=== PATIENT | female | born 1980 | race Caucasian/White ===

== ENCOUNTER 2017-12-27 01:32 | Emergency (ER) | payer MEDICAID ==
[~2017-12-27] VITALS: Ht 157.5 cm; Wt 64.9 kg
[~2017-12-27 01:32] MED LIST: PREN-385 PO
[2017-12-27 01:46] VITALS: BP 116/80
--- NOTE | 2017-12-27 01:48 | NUR ---
TO BED # 7 AMBULATORY, REPORT GIVEN TO LIEN GASTELUM.
--- NOTE | 2017-12-27 01:50 | NUR ---
PATIENT PRESENTS TO ED WITH EPIGASTRIC PAIN SINCE 8PM . PT DENIES N/V/D; SKIN IS PINK/WARM/DRY; AAOX4 WITH EVEN AND STEADY GAIT; LUNGS CLEAR BL; HR EVEN AND REGULAR; PT DENIES ANY FEVER, CP, SOB, OR COUGH AT THIS TIME; PATIENT STATES PAIN OF 10/10 AT THIS TIME; VSS; PATIENT POSITIONED FOR COMFORT; HOB ELEVATED; BEDRAILS UP X1; BED DOWN. ER MD MADE AWARE OF PT STATUS.
[2017-12-27] MEDS ORDERED: LIDOCAINE VISCOUS 2% 20 ML UDC PO ONE (02:15)
[2017-12-27] MEDS ORDERED: ALUMINUM HYD/MAG/SIMETHICONE 30 ML UDC PO ONE (02:15)
[2017-12-27] MEDS ORDERED: DICYCLOMINE HCL LIQUID 10 MG/5 ML UDC PO ONE (02:15)
[2017-12-27] MEDS ORDERED: PANTOPRAZOLE 40 MG TABEC PO ONE (02:50)
[2017-12-27] MEDS ORDERED: KETOROLAC 60 MG/2 ML VIAL IM ONE (03:05)
--- NOTE | 2017-12-27 03:36 | NUR ---
Dr. Rodríguez evaluating patient at bedside.
--- NOTE | 2017-12-27 03:44 | NUR ---
Patient discharged with v/s stable. Written and verbal after care instructions given and explained. Patient alert, oriented and verbalized understanding of instructions. Ambulatory with steady gait. All questions addressed prior to discharge. ID band removed. Patient advised to follow up with PMD. Rx of MAALOX, CARAFATE, PROTONIX, TRAMADOL given. Patient educated on indication of medication including possible reaction and side effects. Opportunity to ask questions provided and answered.
[2017-12-27 03:45] VITALS: BP 116/80
== END 2017-12-27 03:44 | disposition home or self-care (01) ==
LOC: MED 01:32
DX: K29.00 Acute gastritis without bleeding (principal); Z79.899 Other long term (current) drug therapy
CPT/HCPCS: 81002; 81025; 96372; 99284; J1885

== ENCOUNTER 2019-04-20 22:57 | Inpatient (IN) | payer MEDICAID, OTHER ==
[~2019-04-20] VITALS: Ht 157.5 cm; Wt 60.3 kg
[2019-04-20 23:05] VITALS: BP 141/80
--- NOTE | 2019-04-20 23:08 | NUR ---
TO LOBBY A/W BED AMBULATORY
--- NOTE | 2019-04-20 23:37 | NUR ---
PT AMBULATED TO BED 12.
[2019-04-21] MEDS ORDERED: MORPHINE SULFATE 4 MG/ML SYR IVP ONE ×2 (00:25→01:35)
[2019-04-21] MEDS ORDERED: ONDANSETRON 4 MG/2 ML VIAL IVP ONE (00:25)
--- NOTE | 2019-04-21 00:25 | NUR ---
ERMD AT BEDSIDE EVALUATING PATIENT.
--- NOTE | 2019-04-21 00:30 | NUR ---
38 Y/O FEMALE C/O OF ABD PAIN RADIATING TO HER BACK STARTED AN HOUR AGO AFTER EATING [employer] FOR DINNER. SHE STATES SHE HAS NAUSEA. PAIN IS AN 8/10. FACIAL GRIMACING NOTED. ABDOMINAL SOUNDS ON ALL FOUR QUADRANTS. ABDOMEN IS SOFT AND ROUND. ERMD MADE AWARE OF STATUS. SIDERAILSX1 AND PLACED ON MONITOR.
[2019-04-21 00:40] LABS: APPEARANCE,URINE SL CLOUDY (CLEAR); BILIRUBIN,URINE NEGATIVE (NEGATIVE); BLOOD, URINE NEGATIVE (NEGATIVE); COLOR,URINE YELLOW (YELLOW); LEUKOCYTE ESTERASE ,URINE NEGATIVE (NEGATIVE); NITRITE, URINE NEGATIVE (NEGATIVE); PH,URINE 7.5 (5.0-9.0); UGLUCOSE NEGATIVE (NEGATIVE)
[2019-04-21 00:42] LABS: BASOPHILS % (AUTO) 0.4 % (0.0-2.0); EOSINOPHILS # (AUTO) 0.1 K/uL (0-0.4); EOSINOPHILS % (AUTO) 0.8 % (0.0-4.0); HEMATOCRIT 38.9 % (36-48); LYMPHOCYTES # (AUTO) 1.7 K/uL (2.5-16.5); LYMPHOCYTES % (AUTO) 22.6 % (20.5-51.1); MEAN CORPUSCULAR HEMOGLOBIN 29 pg (27-31); MEAN CORPUSCULAR HGB CONC 33 g/dL (33-37); MEAN CORPUSCULAR VOLUME 86.5 fL (80-94); MONOCYTES # (AUTO) 0.6 K/uL (0.8-1.0); MONOCYTES % (AUTO) 8.5 % (1.7-9.3); NEUTROPHILS # (AUTO) 5.1 K/uL (1.8-7.7); NEUTROPHILS % (AUTO) 67.7 % (42.2-75.2); PLATELET COUNT (AUTO) 223 K/uL (140-450); WHITE BLOOD COUNT (AUTO) 7.5 K/uL (4.8-10.8)
[2019-04-21 00:50] LABS: ANION GAP 15.7 (8-16); CARBON DIOXIDE 24.9 mmol/L (21-32); CREATININE 0.7 mg/dL (0.6-1.3); POTASSIUM 3.6 mmol/L (3.5-5.1)
[2019-04-21 00:55] LABS: ALBUMIN 3.9 g/dL (3.4-5.0); TOTAL BILIRUBIN 0.4 mg/dL (0.0-1.0)
[2019-04-21] MEDS ORDERED: KETOROLAC 30 MG/ML VIAL IVP ONE (01:10)
[2019-04-21] MEDS ORDERED: RANI150C PO (02:54)
[2019-04-21] MEDS ORDERED: LORazepam 2 MG/ML VIAL IM/IVP PRN (03:05)
[2019-04-21] MEDS ORDERED: DOCUSATE SODIUM 100 MG GELCAP PO PRN (03:05)
[2019-04-21] MEDS ORDERED: ZOLPIDEM 5 MG TAB PO PRN (03:05)
[2019-04-21] MEDS ORDERED: ACETAMINOPHEN 325 MG TAB PO PRN (03:05)
[2019-04-21] MEDS ORDERED: HYDROcodone/APAP 5/325 MG 1 TAB TAB PO PRN (03:05)
[2019-04-21] MEDS ORDERED: ONDANSETRON 4 MG/2 ML VIAL IM/IVP PRN (03:05)
--- NOTE | 2019-04-21 03:20 | NUR ---
Patient will be admitted to care of SR. JEFFREY . Admited to Med/Surg. Will go to room 125 A. Belongings list completed. Report to ORIANA [place].
--- NOTE | 2019-04-21 03:20 | NUR ---
ADMITTED PT FROM ER. AAOX4. DENIES PAIN AT THIS TIME. NO SOB NOTED. NO NAUSEA/VOMITING. ON ROOM AIR. SKIN INTACT. IV TO RIGHT AC #20G, PATENT AND INTACT. ORIENTED PT TO ROOM. DISCUSSED PLAN OF CARE, PT VERBALIZED UNDERSTANDING. PT'S AT BEDSIDE. SAFETY PRECAUTION IN PLACE. CALL LIGHT WITHIN REACH.
[2019-04-21 03:29] LABS: PROTHROMBIN TIME 10.2 secs (10.8-13.4)
[2019-04-21] MEDS: NACL 0.9% 1,000 ML IV SCH ×2 (03:44→16:37)
[2019-04-21] MEDS ORDERED: MORPHINE SULFATE 2 MG/ML SYR IVP PRN (03:45)
[2019-04-21 03:57] LABS: BARBITURATE, URINE NEG. ng/ml (NEG <=200); BENZODIAZEPINE, URINE NEG. ng/mL (NEG <=200); CANNABINOID, URINE NEG. ng/mL (NEG <=50); COCAINE, URINE NEG. ng/mL (NEG <=300); OPIATE, URINE NEG. ng/mL (NEG <=2000); PHENCYCLIDINE SCREEN,URINE NEG. ng/mL (NEG <=25)
[2019-04-21 03:59] LABS: CHOL/HDL RATIO 3.6 (1-4.5)
[2019-04-21 04:00] VITALS: BP 95/55
[2019-04-21 04:42] LABS: MAGNESIUM 1.8 mg/dL (1.8-2.4); PHOSPHORUS 1.6 mg/dL (2.5-4.9); THYROID STIMULATING HORMONE 1.15 uIU/mL (0.34-3.74)
--- NOTE | 2019-04-21 06:00 | NUR ---
PT RESTING IN BED, AWAKE. NO C/O PAIN. NO C/O NAUSEA. RESP EVEN AND UNLABORED. ALL NEEDS ATTENDED AT THIS TIME. AT BEDSIDE. CALL LIGHT WITHIN REACH.
--- NOTE | 2019-04-21 07:22 | NUR ---
ENDORSED PT TO DAY SHIFT NURSE. PT IN STABLE CONDITION.
--- NOTE | 2019-04-21 07:25 | NUR ---
RECEIVED REPORT FROM NIGHT RN. PT RESTING IN BED. AAOX4. NO S/S OF ACUTE DISTRESS. PT DENIES PAIN. IV SITE PATENT AND INTACT. CALL LIGHT WITHIN REACH. SAFETY MEASURES ENSURED. WILL CONTINUE TO MONITOR.
[2019-04-21 08:00] VITALS: BP 109/76
--- NOTE | 2019-04-21 08:25 | NUR ---
PATIENT HAS BEEN SCREENED AND CATEGORIZED LOW NUTRITION RISK. PATIENT WILL BE SEEN WITHIN 7 DAYS OF ADMISSION. 04/26/[address]
[2019-04-21] MEDS: FAMOTIDINE 20 MG TAB PO SCH (08:46)
[2019-04-21] MEDS: SODIUM PHOS / POTASSIUM PHOS 1 PKT PDR PO SCH ×2 (08:46→20:26)
--- NOTE | 2019-04-21 12:16 | NUR ---
PATIENT RESTING IN BED. NO S/S OF ACUTE DISTRESS. PT DENIES PAIN. CALL LIGHT WITHIN REACH. SAFETY MEASURES ENSURED. WILL CONTINUE TO MONITOR.
[2019-04-21 16:00] VITALS: BP 97/75
--- NOTE | 2019-04-21 16:13 | NUR ---
PATIENT RESTING IN BED. NO S/S OF ACUTE DISTRESS. PT DENIES PAIN. CALL LIGHT WITHIN REACH. SAFETY MEASURES ENSURED. WILL CONTINUE TO MONITOR.
--- NOTE | 2019-04-21 19:30 | NUR ---
ASSUMED CARE OF PATIENT, AWAKE, ALERT AND ORIENTED. FAMILY AT BEDSIDE. NO COMPLAINS. NPO STILL EXCEPT MEDS. CALL LIGHT WITHIN REACH.
--- NOTE | 2019-04-21 20:00 | NUR ---
VITAL SIGNS STABLE. NO COMPLAINS. CARE BOARD UPDATED. CALL LIGHT WITHIN REACH.
--- NOTE | 2019-04-21 21:00 | NUR ---
HIDA SCAN PENDING RESULTS. NPO STILL. CALL LIGHT WITHIN REACH.
[2019-04-21 23:42] VITALS: BP 94/56
--- NOTE | 2019-04-21 23:43 | NUR ---
ASLEEP. NO COMPLAINS. VITAL SIGNS STABLE. CALL LIGHT WITHIN REACH.
--- NOTE | 2019-04-22 05:20 | NUR ---
ASLEEP. NO COMPLAINS. CALL LIGHT WITHIN REACH. NPO FOR POSSIBLE SURGERY TODAY.
[2019-04-22 06:06] LABS: ANION GAP 10.4 (8-16); CARBON DIOXIDE 26.4 mmol/L (21-32); CREATININE 0.6 mg/dL (0.6-1.3); POTASSIUM 3.8 mmol/L (3.5-5.1)
[2019-04-22 06:39] LABS: BASOPHILS % (AUTO) 0.4 % (0.0-2.0); EOSINOPHILS # (AUTO) 0.1 K/uL (0-0.4); HEMATOCRIT 36.2 % (36-48); HEMOGLOBIN 11.9 g/dL (12.0-16.0); LYMPHOCYTES # (AUTO) 2.1 K/uL (2.5-16.5); MEAN CORPUSCULAR HEMOGLOBIN 29 pg (27-31); MEAN CORPUSCULAR HGB CONC 33 g/dL (33-37); MEAN CORPUSCULAR VOLUME 88.1 fL (80-94); MONOCYTES # (AUTO) 0.5 K/uL (0.8-1.0); MONOCYTES % (AUTO) 9.5 % (1.7-9.3); NEUTROPHILS # (AUTO) 2.2 K/uL (1.8-7.7); NEUTROPHILS % (AUTO) 44.1 % (42.2-75.2); PLATELET COUNT (AUTO) 200 K/uL (140-450); RED CELL DISTRIBUTION WIDTH 13.8 % (11.6-13.7); WHITE BLOOD COUNT (AUTO) 4.9 K/uL (4.8-10.8)
--- NOTE | 2019-04-22 07:15 | NUR ---
ENDORSED CARE AT BEDSIDE WITH KORINA RN , PATIENT IN STABLE CONDITION.
--- NOTE | 2019-04-22 07:16 | NUR ---
RECEIVED BEDSIDE REPORT FROM ROUGH PLANER TENDER NURSE. PATIENT IS AWAKE, ALERT AND ORIENTEDX4. NO SIGNS OF DISTRESS ON RA. SKIN IS INTACT. IV ON R AC 20G INFUSING NS AT 70. CLEAN, DRY AND INTACT. AMBULATORY. CONTINENT. BED IN LOW POSITION.CALL LIGHT WITHIN REACH. ABLE TO MAKE NEEDS KNOWN
[2019-04-22 08:00] VITALS: BP 93/51
[2019-04-22] MEDS: FAMOTIDINE 20 MG TAB PO SCH (08:41)
[2019-04-22] MEDS: NACL 0.9% 1,000 ML IV SCH ×2 (08:42→21:58)
--- NOTE | 2019-04-22 08:43 | NUR ---
ADMINISTERED MEDS. EDUCATED ON SIDE EFFECTS. PATIENT TOLERATED WELL. WILL CONTINUE TO MONITOR
--- NOTE | 2019-04-22 10:00 | NUR ---
PATIENT IN NO DISTRESS. AT BEDSIDE
[2019-04-22] MEDS ORDERED: BUPIVACAINE-MPF 0.25% 30 ML VIAL INJ ONE (10:24)
--- NOTE | 2019-04-22 12:15 | NUR ---
OR TEAM CAME AND PICKED UP THE PATIENT. PATIENT LEFT IN STABLE CONDITION
[2019-04-22] MEDS ORDERED: ceFAZolin 1,000 MG VIAL ONE (12:29)
[2019-04-22] MEDS ORDERED: DEXAMETHASONE 4 MG/ML VIAL ONE (12:30)
[2019-04-22] MEDS ORDERED: ONDANSETRON 4 MG/2 ML VIAL ONE (12:30)
[2019-04-22] MEDS ORDERED: SEVOFLURANE 250 ML BTL INH ONE (12:30)
[2019-04-22] MEDS ORDERED: KETOROLAC 60 MG/2 ML VIAL IM ONE (12:30)
[2019-04-22] MEDS ORDERED: SUCCINYLCHOLINE CHLORIDE 200 MG/10 ML VIAL IVP ONE (12:30)
[2019-04-22] MEDS ORDERED: PROPOFOL 200 MG/20 ML VIAL IV ONE (12:30)
[2019-04-22] MEDS ORDERED: ROCURONIUM 50 MG/5 ML VIAL IV ONE (12:30)
[2019-04-22] MEDS ORDERED: fentaNYL 0.05 MG/ML VIAL ONE (12:45)
[2019-04-22] MEDS ORDERED: MEPERIDINE 50 MG/ML SYR ONE (12:45)
[2019-04-22] MEDS ORDERED: MIDAZOLAM 2 MG/2 ML VIAL ONE (12:45)
--- NOTE | 2019-04-22 13:10 | NUR ---
PATIENT BACK FROM OR IN STABLE CONDITION
[2019-04-22] MEDS ORDERED: LACTATED RINGERS 1,000 ML IV SCH (13:14)
[2019-04-22] MEDS ORDERED: HYDROmorphone 1 MG/ML AMP IVP PRN (13:15)
[2019-04-22] MEDS ORDERED: ONDANSETRON 4 MG/2 ML VIAL IVP PRN (13:15)
[2019-04-22] MEDS ORDERED: diphenhydrAMINE 50 MG/ML VIAL IVP PRN (13:15)
[2019-04-22] MEDS ORDERED: MEPERIDINE 25 MG/ML SYR IVP PRN (13:15)
[2019-04-22] MEDS: KETOROLAC 30 MG/ML VIAL IVP PRN (15:24)
--- NOTE | 2019-04-22 15:27 | NUR ---
ADMINISTERED PRN PAIN MED. PATIENT TOLERATED WELL. EDUCATED ON SIDE EFFECTS. WILL CONTINUE TO MONITOR
--- NOTE | 2019-04-22 15:59 | NUR ---
DR RIVERS SAID IF PATIENT STILL IN TOO MUCH PAIN SHE CAN GO HOME TOMORROW. HE SAID IF SHE STAYS OVER NIGHT CHANGE DIET TOMORROW TO FULL LIQ. PATIENT HAS NOT PASSED GAS OR AMBULATED
[2019-04-22 16:00] VITALS: BP 107/69
--- NOTE | 2019-04-22 17:49 | NUR ---
PATIENT IN NO DISTRESS. WILL CONTINUE TO MONITOR
--- NOTE | 2019-04-22 19:20 | NUR ---
REPORT RECEIVED FORM DORA RN DAYSHIFT NURSE AT BEDSIDE FOR CONTINUITY OF CARE, PT IN STABLE CONDITION.
--- NOTE | 2019-04-22 19:20 | NUR ---
GAVE BEDSIDE REPORT TO TOOL SETTER NURSE. PATIENT ENDORSED IN STABLE CONDITION
--- NOTE | 2019-04-22 20:00 | NUR ---
PT IN LOW BED WITH SIDE RAILS UP X2, V/S FOLLOWS T 97.5 P 80 R 18 B/P 97/51 02 96% ON ROOM AIR. PT IS AOX4 WITH IV SITE ON RAC 20 GUAGE INTACT AND RUNNING NS AT 70MLS/HR. PT HAS 4 SURGICAL SITES WHICH ARE DRESSED 1 SITE ON LOWER ABDOMEN HAS MINIMAL BLOODY DRAINAGE THAT WAS CIRCLES. PT WAS STANDBY ASSIST TO TOILET. AFTERWARDS, PT AMBULATED IN [place] FOR A SHORT WHILE.
--- NOTE | 2019-04-22 21:00 | NUR ---
PT IN BED C/O SEVERE PAIN IN ABDOMEN, RECEIVED IVP/PRN MORPHINE ORDERED FOR SEVERE PAIN 03/01. PT ALSO REQUESTED AND WAS GIVEN PO/PRN AMBIEN TO HELP HER SLEEP. IV SITE INTACT AND RUNNING N/S AT 70MLS/HR. BED LOW AND CALL MORALES IN REACH.
[2019-04-23] VITALS: BP 100/53
--- NOTE | 2019-04-23 | NUR ---
PT IN BED AWAKE, SHE DENIES PAIN AT THIS TIME. V/S FOLLOWS T 97.3 P 64 R 18 B/P 100/53 02 98% ON ROOM AIR . BED LOW, SIDE RAILS UP X2 AND ALL REQUESTED NEEDS ATTENDED. AND CALL MORALES IN REACH.
[2019-04-23] MEDS: KETOROLAC 30 MG/ML VIAL IVP PRN ×2 (05:22→12:01)
--- NOTE | 2019-04-23 05:30 | NUR ---
PT IN BED C/O OF 03/01 PAIN IN ABDOMEN, PT GIVEN REQUESTED TORADOL IVP. WILL MONITOR FOR EFFECT. NORMAL SALINE RUNNING AT 70MLS/HR. CALL MORALES IN REACH.
[2019-04-23 06:43] LABS: ANION GAP 13.8 (8-16); CREATININE 0.5 mg/dL (0.6-1.3); POTASSIUM 3.8 mmol/L (3.5-5.1)
[2019-04-23 06:55] LABS: MAGNESIUM 1.9 mg/dL (1.8-2.4); PHOSPHORUS 2.7 mg/dL (2.5-4.9)
[2019-04-23 07:14] LABS: BASOPHILS % (AUTO) 0.2 % (0.0-2.0); EOSINOPHILS % (AUTO) 0.4 % (0.0-4.0); HEMOGLOBIN 11.9 g/dL (12.0-16.0); LYMPHOCYTES # (AUTO) 1.6 K/uL (2.5-16.5); LYMPHOCYTES % (AUTO) 21.9 % (20.5-51.1); MEAN CORPUSCULAR HEMOGLOBIN 30 pg (27-31); MEAN CORPUSCULAR HGB CONC 34 g/dL (33-37); MONOCYTES # (AUTO) 0.6 K/uL (0.8-1.0); MONOCYTES % (AUTO) 8.6 % (1.7-9.3); NEUTROPHILS % (AUTO) 68.9 % (42.2-75.2); PLATELET COUNT (AUTO) 219 K/uL (140-450); RED BLOOD CELL COUNT(AUTO) 4.03 MIL/uL (4.20-5.40); RED CELL DISTRIBUTION WIDTH 13.7 % (11.6-13.7); WHITE BLOOD COUNT (AUTO) 7.3 K/uL (4.8-10.8)
[2019-04-23 08:00] VITALS: BP 101/54
[2019-04-23] MEDS: FAMOTIDINE 20 MG TAB PO SCH (09:49)
[2019-04-23] MEDS ORDERED: ACET-9525 PO (11:23)
--- NOTE | 2019-04-23 15:16 | NUR ---
ASKED THE ATTENDING MD IF THE PT WAS READY FOR DC. HE SAID YES AND WROTE AND ORDER. i INSTRUCTED THE PT TO CALL 911 FOR SERIOUS SYMPTOMS OR CALL HER DR OR COME TO OUR HOSPITAL WITH MINOR SYMPTOMS. I INSTRUCTED HER NOT TO GET THE DRESSINGS WET AND THEREFORE NO SHOWERS AT THIS TIME. VS STABLE THE PT IS WITHOUT C/O. PRESCRIPTION GIVEN. I WHEEL CHAIRED THE PT OUT TO HER SISTERS [facility]AN AND SAFELY ASSISTED HER INTO THE PASSENGERS SEAT. SEE STATED SHE WILL CALL HER DR AND FOLLOW UP WITH AND APPOINTMENT BECAUSE SHE WANTS TO GO BACK TO WORK.
== END 2019-04-23 14:44 | disposition home or self-care (01) | DRG 263 ==
LOC: MED 22:57 → MMU 04-21 02:39
PROVIDERS: ADMIT General Practice; ATTEND General Practice
PROC: 0FT44ZZ Resection of Gallbladder, Percutaneous Endoscopic Approach (ICD-10-PCS; principal; 2019-04-22 11:10)
DX: K80.12 Calculus of gallbladder with acute and chronic cholecystitis without obstruction (principal); K65.9 Peritonitis, unspecified; K21.9 Gastro-esophageal reflux disease without esophagitis; E83.39 Other disorders of phosphorus metabolism; F43.9 Reaction to severe stress, unspecified; D64.9 Anemia, unspecified; Z82.49 Family history of ischemic heart disease and other diseases of the circulatory system
CPT/HCPCS: 36415; 71045; 76705; 78445; 80048; 80053; 80305; 81003; 81025; 82150; 82374; 83036; 83690; 83735; 84100; 84134; 84443; 85025; 85610; 85730; 87081; 88304; 93005; 96374; 96375; 99285; J0330; J0690; J1100; J1885; J2175; J2250; J2270; J2405; J2704; J3010; J3490; J7030; Q0092

== ENCOUNTER 2020-01-05 01:40 | Emergency (ER) | payer OTHER ==
[~2020-01-05] VITALS: Ht 157.5 cm; Wt 60.8 kg
[~2020-01-05 01:40] MED LIST changes: -PREN-385 PO; +RANI150C PO
[2020-01-05 01:48] VITALS: BP 106/81
--- NOTE | 2020-01-05 01:58 | NUR ---
PT AMBULATED TO BED 12 WITH STEADY GAIT.
--- NOTE | 2020-01-05 02:02 | NUR ---
39F PT PRESENTS TO ED WITH C/O RUQ, LUQ 9/10 ABDOMINAL PAIN THAT IS RADIATING TO LOWER BACK. PT REPORTS HAVING IT FOR X 5 DAYS. BOWEL SOUNDS NORMOACTIVE. ABDOMEN SOFT AND NONTENDER TO THE TOUCH. DENIES HEMATOCHEZIA. DENIES DYSURIA. DENIES SOB/COUGH. DENIES N/V/D. PMHX: GASTRITIS. RX: DENIES NKA NEGATIVE FOR COVID SCREENING PT WEARING MASK.
[2020-01-05 02:05] VITALS: BP 106/81
--- NOTE | 2020-01-05 02:05 | NUR ---
BARBARA COOL AT BEDSIDE EVALUATING PT.
[2020-01-05] MEDS ORDERED: DICYCLOMINE HCL LIQUID 20 MG, ALUMINUM HYD/MAG/SIMETHICONE 30 ML, LIDOCAINE VISCOUS 2% ... PO ONE ×3 (02:10)
[2020-01-05] MEDS ORDERED: LIDOCAINE VISCOUS 2% 20 ML UDC ONE (02:12)
[2020-01-05] MEDS ORDERED: ALUMINUM HYD/MAG/SIMETHICONE 30 ML UDC ONE (02:12)
[2020-01-05] MEDS ORDERED: DICYCLOMINE HCL LIQUID 10 MG/5 ML UDC ONE (02:12)
--- NOTE | 2020-01-05 02:20 | NUR ---
Patient discharged with v/s stable. Written and verbal after care instructions given and explained. Patient alert, oriented and verbalized understanding of instructions. Ambulatory with steady gait. All questions addressed prior to discharge. ID band removed. Patient advised to follow up with PMD. Rx of PRILOSEC AND MOTRIN given. Patient educated on indication of medication including possible reaction and side effects. Opportunity to ask questions provided and answered.
== END 2020-01-05 02:20 | disposition home or self-care (01) ==
LOC: MED 01:40
DX: K21.9 Gastro-esophageal reflux disease without esophagitis (principal); R10.13 Epigastric pain; F17.210 Nicotine dependence, cigarettes, uncomplicated; Z79.899 Other long term (current) drug therapy; Z90.49 Acquired absence of other specified parts of digestive tract
CPT/HCPCS: 81002; 81025; 99283

== ENCOUNTER 2020-01-05 09:11 | Emergency (ER) | payer OTHER ==
[~2020-01-05] VITALS: Ht 160 cm; Wt 61.2 kg
[2020-01-05 09:15] VITALS: BP 112/68
--- NOTE | 2020-01-05 09:23 | NUR ---
Patient ambulated to bed 12. RN evaluating patient at bedside.
[2020-01-05] MEDS ORDERED: KETOROLAC 30 MG/ML VIAL IVP ONE (09:25)
--- NOTE | 2020-01-05 09:25 | NUR ---
C/O EPIGASTRIC PAIN 05/01 RADIATING TO BACK X SUNDAY. EPIGASTRIC REGION TENDER TO TOUCH. BOWEL SOUNDS ACTIVE. ABDOMEN SOFT AND ROUND. LAST BM YESTERDAY, NORMAL. PT DENIES CONSTIPATION, DIARRHEA, OR N/V. WAS SEEN HERE FOR LAST NIGHT FOR SAME SYMPTOMS, DIAGNOSED WITH GERD, SENT HOME WITH PRESCRIPTION. STATES SHE TOOK PRESCRIPTION WITH NO RELIEF. PMH- CHOLECYSTECTOMY 2019
--- NOTE | 2020-01-05 09:30 | NUR ---
URINE COLLECTED, PREG NEGATIVE
--- NOTE | 2020-01-05 09:31 | NUR ---
LAB AT BEDSIDE
--- NOTE | 2020-01-05 09:34 | NUR ---
Patient taken to CT scan via wheelchair by tech.
[2020-01-05 09:41] LABS: APPEARANCE,URINE CLEAR (CLEAR); BILIRUBIN,URINE NEGATIVE (NEGATIVE); BLOOD, URINE 3+ (NEGATIVE); COLOR,URINE YELLOW (YELLOW); LEUKOCYTE ESTERASE ,URINE NEGATIVE (NEGATIVE); NITRITE, URINE NEGATIVE (NEGATIVE); UGLUCOSE NEGATIVE (NEGATIVE)
[2020-01-05 09:41] LABS: BASOPHILS % (AUTO) 0.5 % (0.0-2.0); EOSINOPHILS # (AUTO) 0.1 K/uL (0-0.4); EOSINOPHILS % (AUTO) 1.4 % (0.0-4.0); HEMATOCRIT 38.8 % (36-48); HEMOGLOBIN 12.8 g/dL (12.0-16.0); LYMPHOCYTES # (AUTO) 1.7 K/uL (2.5-16.5); MEAN CORPUSCULAR HEMOGLOBIN 28 pg (27-31); MEAN CORPUSCULAR HGB CONC 33 g/dL (33-37); MEAN CORPUSCULAR VOLUME 85.5 fL (80-94); MONOCYTES # (AUTO) 0.6 K/uL (0.8-1.0); MONOCYTES % (AUTO) 7.7 % (1.7-9.3); NEUTROPHILS # (AUTO) 5.3 K/uL (1.8-7.7); NEUTROPHILS % (AUTO) 68.4 % (42.2-75.2); PLATELET COUNT (AUTO) 231 K/uL (140-450); RED BLOOD CELL COUNT(AUTO) 4.54 MIL/uL (4.20-5.40); RED CELL DISTRIBUTION WIDTH 13.7 % (11.6-13.7); WHITE BLOOD COUNT (AUTO) 7.8 K/uL (4.8-10.8)
--- NOTE | 2020-01-05 09:44 | NUR ---
PT RETURNED FROM CT
[2020-01-05 09:52] LABS: RBC,URINE 11-20 (MOD) /HPF (0-5)
[2020-01-05 09:53] LABS: WBC,URINE 0-5 /HPF (0-5)
--- NOTE | 2020-01-05 09:53 | NUR ---
Dr. Mejia is evaluating the patient at bedside.
[2020-01-05 09:57] LABS: ALBUMIN 3.6 g/dL (3.4-5.0); ANION GAP 11.7 (8-16); CARBON DIOXIDE 26.9 mmol/L (21-32); CREATININE 0.6 mg/dL (0.6-1.3); POTASSIUM 3.6 mmol/L (3.5-5.1); TOTAL BILIRUBIN 0.4 mg/dL (0.0-1.0)
--- NOTE | 2020-01-05 10:17 | NUR ---
PAIN 10, NADR
[2020-01-05 10:30] VITALS: BP 107/63
--- NOTE | 2020-01-05 10:30 | NUR ---
Patient discharged with v/s stable. Written and verbal after care instructions given and explained. Patient alert, oriented and verbalized understanding of instructions. Ambulatory with steady gait. All questions addressed prior to discharge. ID band removed. Patient advised to follow up with PMD. Rx of MIRALAX given. Patient educated on indication of medication including possible reaction and side effects. Opportunity to ask questions provided and answered. PT INSTRUCTED THAT SHE CAN CONTINUE TAKING PREVIOUS PRESCRIPTION FROM LAST NIGHT FOR GERD
== END 2020-01-05 10:30 | disposition home or self-care (01) ==
LOC: MED 09:11
DX: K21.9 Gastro-esophageal reflux disease without esophagitis (principal); K59.00 Constipation, unspecified; Z79.899 Other long term (current) drug therapy
CPT/HCPCS: 36415; 74176; 80053; 81001; 81025; 83690; 85025; 96374; 99284; J1885

== ENCOUNTER 2020-08-02 04:15 | Emergency (ER) | payer OTHER ==
[~2020-08-02] VITALS: Ht 157.5 cm; Wt 59.0 kg
[2020-08-02 04:20] VITALS: BP 138/70
--- NOTE | 2020-08-02 04:33 | NUR ---
PT TAKEN TO TENT
[2020-08-02] MEDS ORDERED: ASPIRIN 325 MG TAB PO ONE (04:55)
[2020-08-02] MEDS ORDERED: PANTOPRAZOLE 40 MG TABEC PO ONE (04:55)
--- NOTE | 2020-08-02 05:00 | NUR ---
medicated as per ERMDS order, tolerated well
--- NOTE | 2020-08-02 05:03 | NUR ---
Blood for labwork drawn from [facility]. Patient tolerated well.
--- NOTE | 2020-08-02 05:05 | NUR ---
swab done sent to lab.
[2020-08-02 05:58] LABS: BASOPHILS % (AUTO) 0.4 % (0.0-2.0); EOSINOPHILS # (AUTO) 0.1 K/uL (0-0.4); EOSINOPHILS % (AUTO) 0.8 % (0.0-4.0); HEMATOCRIT 38.6 % (36-48); HEMOGLOBIN 12.8 g/dL (12.0-16.0); LYMPHOCYTES # (AUTO) 1.8 K/uL (2.5-16.5); LYMPHOCYTES % (AUTO) 23.9 % (20.5-51.1); MEAN CORPUSCULAR HEMOGLOBIN 28 pg (27-31); MEAN CORPUSCULAR HGB CONC 33 g/dL (33-37); MEAN CORPUSCULAR VOLUME 83.1 fL (80-94); MONOCYTES # (AUTO) 0.6 K/uL (0.8-1.0); MONOCYTES % (AUTO) 7.7 % (1.7-9.3); NEUTROPHILS # (AUTO) 4.9 K/uL (1.8-7.7); NEUTROPHILS % (AUTO) 67.2 % (42.2-75.2); PLATELET COUNT (AUTO) 233 K/uL (140-450); RED BLOOD CELL COUNT(AUTO) 4.64 MIL/uL (4.20-5.40); RED CELL DISTRIBUTION WIDTH 15.6 % (11.6-13.7); WHITE BLOOD COUNT (AUTO) 7.3 K/uL (4.8-10.8)
[2020-08-02 06:13] LABS: ANION GAP 10.6 (8-16); CARBON DIOXIDE 27.1 mmol/L (21-32); CREATININE 0.6 mg/dL (0.6-1.3); POTASSIUM 3.7 mmol/L (3.5-5.1); TOTAL BILIRUBIN 0.3 mg/dL (0.0-1.0)
--- NOTE | 2020-08-02 06:30 | NUR ---
ALL RESULTS BACK AND NOTED BY ERMD AND FOR D/C
[2020-08-02 06:42] VITALS: BP 138/70
--- NOTE | 2020-08-02 06:47 | NUR ---
Patient discharged with v/s stable. Written and verbal after care instructions given and explained. Patient alert, oriented and verbalized understanding of instructions. Ambulatory with steady gait. All questions addressed prior to discharge. ID band removed. Patient advised to follow up with PMD. Rx of PROTONIX given. Patient educated on indication of medication including possible reaction and side effects. Opportunity to ask questions provided and answered.
== END 2020-08-02 06:47 | disposition home or self-care (01) ==
LOC: MED 04:15
DX: R07.89 Other chest pain (principal)
CPT/HCPCS: 36415; 71045; 80053; 84484; 85025; 87804; 93005; 99285

== ENCOUNTER 2021-02-16 09:19 | Emergency (ER) | payer OTHER ==
[~2021-02-16] VITALS: Ht 157.5 cm; Wt 62.1 kg
[2021-02-16 09:30] VITALS: BP 89/62
--- NOTE | 2021-02-16 09:35 | NUR ---
pt ambulated to bed 06.
--- NOTE | 2021-02-16 09:37 | NUR ---
Patient is a 40 y/o female c/o low back pain for 4 days. Patient states that the pain started while walking, is sharp, 10/10, and radiates to knees. Patient denies CP, SOB, abdominal pain, dysuria, hematuria, n/v/d, headache, blurry vision. PMH: denies Allergies: denies Rx: ibuprofen 600mg
--- NOTE | 2021-02-16 09:41 | NUR ---
Patient ambulated to the restroom with a steady gait.
[2021-02-16] MEDS ORDERED: KETOROLAC 30 MG/ML VIAL IM ONE (09:50)
--- NOTE | 2021-02-16 10:54 | NUR ---
Dr. Mcgrath at the bedside reevaluating the patient.
[2021-02-16] MEDS ORDERED: IBUP-2213 PO (11:04)
[2021-02-16 11:09] VITALS: BP 106/73
== END 2021-02-16 11:09 | disposition home or self-care (01) ==
LOC: MED 09:19
DX: M54.5 Low back pain (principal); K21.9 Gastro-esophageal reflux disease without esophagitis; Z79.899 Other long term (current) drug therapy
CPT/HCPCS: 81002; 81025; 96372; 99283; J1885

== ENCOUNTER 2021-03-04 11:05 | Emergency (ER) | payer OTHER ==
[~2021-03-04] VITALS: Ht 157.5 cm; Wt 62.1 kg
[~2021-03-04 11:05] MED LIST changes: +IBUP-2213 PO
[2021-03-04 11:16] VITALS: BP 110/72
--- NOTE | 2021-03-04 11:21 | NUR ---
Pt ambulated to bed 06.
--- NOTE | 2021-03-04 11:22 | NUR ---
40 YEAR OLD FEMALE COMPLAINS OF LOWER BACK PAIN X 1 WEEK. PT STATES PAIN PROGRESSIVELY GETTING WORSE SINCE COMING FOR VISIT IN ER LAST WEEK. PT STATES PAIN CAUSED INITIALLY AFTER SHE GRABBED SOMETHING ON FLOOR. PT DENIES TRAUMA. PT DENIES PROBLEMS WITH URINATION. PMH - DENIES ALLERGIES - NKA
[2021-03-04] MEDS ORDERED: KETOROLAC 60 MG/2 ML VIAL IM ONE (11:25)
--- NOTE | 2021-03-04 12:30 | NUR ---
PT STATES THAT HER PAIN FEELS MUCH BETTER AFTER MEDICATION. ERMD AWARE
--- NOTE | 2021-03-04 15:32 | NUR ---
PT ALERT AND AWAKE, BREATHING EVEN AND UNLABORED. NO DISTRESS NOTED. ALL NEEDS MET AT THIS TIME
[2021-03-04] MEDS ORDERED: LID5T TP (15:48)
[2021-03-04] MEDS ORDERED: NAPR-54 PO (15:48)
--- NOTE | 2021-03-04 16:00 | NUR ---
Patient discharged with v/s stable. Written and verbal after care instructions about low back sprain given and explained. Patient alert, oriented and verbalized understanding of instructions. Ambulatory with steady gait. All questions addressed prior to discharge. ID band removed. Patient advised to follow up with PMD. Rx of lidoderm, naprosyn given. Patient educated on indication of medication including possible reaction and side effects. Opportunity to ask questions provided and answered.
[2021-03-04 16:51] VITALS: BP 110/72
--- NOTE | 2021-03-04 16:52 | NUR ---
Note lester in EDM - 03/04/21 at 1652 by MEDCARLOZ Patient discharged with v/s stable. Written and verbal after care instructions about low back sprain given and explained. Patient alert, oriented and verbalized understanding of instructions. Ambulatory with steady gait. All questions addressed prior to discharge. ID band removed. Patient advised to follow up with PMD. Rx of lidoderm, naprosyn given. Patient educated on indication of medication including possible reaction and side effects. Opportunity to ask questions provided and answered.
== END 2021-03-04 16:00 | disposition home or self-care (01) ==
LOC: MED 11:05
DX: M54.5 Low back pain (principal); R20.0 Anesthesia of skin; R20.2 Paresthesia of skin; K21.9 Gastro-esophageal reflux disease without esophagitis; F17.210 Nicotine dependence, cigarettes, uncomplicated; Z79.899 Other long term (current) drug therapy
CPT/HCPCS: 72100; 81002; 81025; 96372; 99283; J1885

== ENCOUNTER 2021-08-15 03:12 | Emergency (ER) | payer OTHER ==
[~2021-08-15] VITALS: Ht 157.5 cm; Wt 64.4 kg
[~2021-08-15 03:12] MED LIST changes: -IBUP-2213 PO; +LID5T TP; +NAPR-54 PO
[2021-08-15 03:18] VITALS: BP 132/103
--- NOTE | 2021-08-15 03:30 | NUR ---
PATIENT TO LOBBY
[2021-08-15 04:03] LABS: BASOPHILS # (AUTO) 0.1 K/uL (0.00-0.22); BASOPHILS % (AUTO) 0.8 % (0.0-2.0); EOSINOPHILS # (AUTO) 0.1 K/uL (0-0.4); EOSINOPHILS % (AUTO) 1.2 % (0.0-4.0); HEMATOCRIT 36.9 % (36-48); HEMOGLOBIN 12.1 g/dL (12.0-16.0); LYMPHOCYTES # (AUTO) 2.7 K/uL (2.5-16.5); LYMPHOCYTES % (AUTO) 34.1 % (20.5-51.1); MEAN CORPUSCULAR HEMOGLOBIN 26 pg (27-31); MEAN CORPUSCULAR HGB CONC 33 g/dL (33-37); MEAN CORPUSCULAR VOLUME 77.8 fL (80-94); MONOCYTES # (AUTO) 0.7 K/uL (0.8-1.0); MONOCYTES % (AUTO) 8.5 % (1.7-9.3); NEUTROPHILS # (AUTO) 4.5 K/uL (1.8-7.7); NEUTROPHILS % (AUTO) 55.4 % (42.2-75.2); PLATELET COUNT (AUTO) 286 K/uL (140-450); RED BLOOD CELL COUNT(AUTO) 4.74 MIL/uL (4.20-5.40); RED CELL DISTRIBUTION WIDTH 16.2 % (11.6-13.7); WHITE BLOOD COUNT (AUTO) 8.1 K/uL (4.8-10.8)
[2021-08-15 04:46] LABS: POTASSIUM 3.6 mmol/L (3.5-5.1)
[2021-08-15 04:47] LABS: ALBUMIN 3.9 g/dL (3.4-5.0); TOTAL BILIRUBIN 0.2 mg/dL (0.0-1.0)
--- NOTE | 2021-08-15 05:00 | NUR ---
patient pulled in triage to do VS, and assess for pain. patient said that pain is less.
[2021-08-15 05:16] VITALS: BP 113/73
--- NOTE | 2021-08-15 05:16 | NUR ---
Patient discharged with v/s stable. Written and verbal after care instructions given and explained. Patient verbalized understanding. Ambulatory with steady gait. ID band removed. All questions addressed prior to discharge. Advised to follow up with PMD.
[2021-08-15 06:22] LABS: CARBON DIOXIDE 25.6 mmol/L (21-32); CREATININE 0.6 mg/dL (0.6-1.3)
== END 2021-08-15 05:16 | disposition home or self-care (01) ==
LOC: MED 03:12
DX: R06.02 Shortness of breath (principal); F41.9 Anxiety disorder, unspecified; K21.9 Gastro-esophageal reflux disease without esophagitis; Z20.822 Contact with and (suspected) exposure to COVID-19
CPT/HCPCS: 36415; 71045; 80053; 84484; 85025; 85379; 93005; 99283; 99285

== ENCOUNTER 2021-10-19 22:00 | Emergency (ER) | payer OTHER ==
[~2021-10-19] VITALS: Ht 157.5 cm; Wt 65.3 kg
[2021-10-19 22:10] VITALS: BP 96/66
[2021-10-19] MEDS ORDERED: DICYCLOMINE HCL LIQUID 20 MG, ALUMINUM HYD/MAG/SIMETHICONE 30 ML, LIDOCAINE VISCOUS 2% ... PO ONE ×3 (22:55)
[2021-10-19] MEDS ORDERED: KETOROLAC 30 MG/ML VIAL IM ONE (22:55)
[2021-10-19] MEDS ORDERED: ALUMINUM HYD/MAG/SIMETHICONE 30 ML UDC ONE (22:59)
[2021-10-19] MEDS ORDERED: DICYCLOMINE HCL LIQUID 10 MG/5 ML UDC ONE (23:00)
[2021-10-19 23:02] LABS: APPEARANCE,URINE CLOUDY (CLEAR); BILIRUBIN,URINE NEGATIVE (NEGATIVE); BLOOD, URINE 1+ (NEGATIVE); COLOR,URINE YELLOW (YELLOW); LEUKOCYTE ESTERASE ,URINE 2+ (NEGATIVE); NITRITE, URINE NEGATIVE (NEGATIVE); UGLUCOSE NEGATIVE (NEGATIVE)
[2021-10-19 23:13] LABS: RBC,URINE 0-5 /HPF (0-5)
[2021-10-19] MEDS ORDERED: NAPR-54 PO (23:19)
[2021-10-19] MEDS ORDERED: CEPH-588 PO (23:19)
[2021-10-19] MEDS ORDERED: PYR100 PO (23:19)
[2021-10-19 23:41] VITALS: BP 135/78
== END 2021-10-19 23:41 | disposition home or self-care (01) ==
LOC: MED 22:00
DX: N39.0 Urinary tract infection, site not specified (principal); K21.9 Gastro-esophageal reflux disease without esophagitis; F17.210 Nicotine dependence, cigarettes, uncomplicated; Z79.899 Other long term (current) drug therapy; Z90.49 Acquired absence of other specified parts of digestive tract
CPT/HCPCS: 81001; 81025; 87086; 96372; 99283; J1885

== ENCOUNTER 2022-09-22 06:14 | Emergency (ER) | payer OTHER ==
[~2022-09-22] VITALS: Ht 157.5 cm; Wt 65.3 kg
[~2022-09-22 06:14] MED LIST changes: +CEPH-588 PO; +PYR100 PO
[2022-09-22 06:19] VITALS: BP 111/63
--- NOTE | 2022-09-22 06:28 | NUR ---
Patient taken to bed 11.
[2022-09-22] MEDS ORDERED: KETOROLAC 15 MG/ML VIAL IVP ONE (06:30)
[2022-09-22] MEDS ORDERED: NACL 0.9% 1,000 ML IV ONE (06:30)
--- NOTE | 2022-09-22 06:30 | NUR ---
Dr. Beasley examining patient.
[2022-09-22] MEDS ORDERED: ONDANSETRON 4 MG/2 ML VIAL IVP ONE (06:35)
--- NOTE | 2022-09-22 06:40 | NUR ---
Patient resting in bed, A/Ox4, chest rise and fall symmetrical, no s/s of distress.
[2022-09-22 06:44] LABS: APPEARANCE,URINE CLEAR (CLEAR); BILIRUBIN,URINE NEGATIVE (NEGATIVE); BLOOD, URINE TRACE-I (NEGATIVE); COLOR,URINE YELLOW (YELLOW); LEUKOCYTE ESTERASE ,URINE TRACE (NEGATIVE); NITRITE, URINE NEGATIVE (NEGATIVE); PH,URINE 8.5 (5.0-9.0); UGLUCOSE NEGATIVE (NEGATIVE)
[2022-09-22 06:44] LABS: BASOPHILS % (AUTO) 0.2 % (0.0-2.0); EOSINOPHILS % (AUTO) 0.3 % (0.0-4.0); HEMOGLOBIN 10.9 g/dL (12.0-16.0); LYMPHOCYTES # (AUTO) 1.2 K/uL (2.5-16.5); LYMPHOCYTES % (AUTO) 10.8 % (20.5-51.1); MEAN CORPUSCULAR HEMOGLOBIN 24 pg (27-31); MEAN CORPUSCULAR HGB CONC 32 g/dL (33-37); MEAN CORPUSCULAR VOLUME 73.3 fL (80-94); MONOCYTES # (AUTO) 0.8 K/uL (0.8-1.0); MONOCYTES % (AUTO) 7.2 % (1.7-9.3); NEUTROPHILS # (AUTO) 8.9 K/uL (1.8-7.7); NEUTROPHILS % (AUTO) 81.5 % (42.2-75.2); PLATELET COUNT (AUTO) 259 K/uL (140-450); RED BLOOD CELL COUNT(AUTO) 4.64 MIL/uL (4.20-5.40); RED CELL DISTRIBUTION WIDTH 16.9 % (11.6-13.7)
[2022-09-22 07:01] LABS: RBC,URINE 0-5 /HPF (0-5); WBC,URINE 0-5 /HPF (0-5)
[2022-09-22 07:06] LABS: ALBUMIN 4.2 g/dL (3.4-5.0); ANION GAP 13.8 (8-16); CARBON DIOXIDE 24.8 mmol/L (21-32); CREATININE 0.6 mg/dL (0.6-1.3); POTASSIUM 3.6 mmol/L (3.5-5.1); TOTAL BILIRUBIN 0.3 mg/dL (0.0-1.0)
--- NOTE | 2022-09-22 07:21 | NUR ---
Change of shift report given to AM Shift Nurse Ten GASTELUM. AM Shift Nurse Ten GASTELUM verbalized understanding of report, no further questions.
[2022-09-22] MEDS ORDERED: MORPHINE SULFATE 4 MG/ML SYR IVP ONE (07:45)
[2022-09-22] MEDS ORDERED: PANTOPRAZOLE 40 MG INJ VIAL IVP ONE (08:30)
[2022-09-22] MEDS ORDERED: MAGNESIUM HYDROXIDE 2400 MG/30 ML UDC PO ONE (08:30)
[2022-09-22 08:45] VITALS: BP 115/76
--- NOTE | 2022-09-22 08:45 | NUR ---
us at bedside
[2022-09-22] MEDS ORDERED: IBUP-2213 PO (09:56)
[2022-09-22] MEDS ORDERED: HYDR-5191 PO (09:56)
[2022-09-22] MEDS ORDERED: ONDA-188 SL (09:56)
== END 2022-09-22 10:02 | disposition home or self-care (01) ==
LOC: MED 06:14
DX: N83.201 Unspecified ovarian cyst, right side (principal); R10.31 Right lower quadrant pain; R11.2 Nausea with vomiting, unspecified; R19.7 Diarrhea, unspecified; K21.9 Gastro-esophageal reflux disease without esophagitis; Z79.899 Other long term (current) drug therapy
CPT/HCPCS: 36415; 74176; 76856; 80053; 81001; 81025; 83605; 85025; 93976; 96361; 96374; 96375; 99285; C9113; J1885; J2270; J2405; J7030; Q0092